=== PATIENT | female | born 1985 | race African-American/Black ===

== ENCOUNTER 2020-04-13 13:44 | Emergency (ER) | payer MEDICAID ==
[~2020-04-13] VITALS: Ht 157.5 cm; Wt 73.0 kg
[2020-04-13 13:47] VITALS: BP 158/93
== END 2020-04-13 17:01 | disposition left against medical advice (07) ==
LOC: ER 13:44
DX: Z53.21 Procedure and treatment not carried out due to patient leaving prior to being seen by health care provider (principal)

== ENCOUNTER 2020-09-15 11:41 | Emergency (ER) | payer MEDICAID ==
[~2020-09-15] VITALS: Ht 162.6 cm; Wt 78.0 kg
[2020-09-15] MEDS ORDERED: IBUPROFEN 600MG TABLET PO ONE (12:00)
[2020-09-15] MEDS ORDERED: CARI250T PO (12:04)
[2020-09-15] MEDS ORDERED: IBUP-2029 PO (12:04)
[2020-09-15 12:13] VITALS: BP 147/105
== END 2020-09-15 12:14 | disposition home or self-care (01) ==
LOC: ER 11:41
DX: M54.31 Sciatica, right side (principal)
CPT/HCPCS: 99283

== ENCOUNTER 2020-12-04 20:05 | Emergency (ER) | payer MEDICAID, OTHER ==
[~2020-12-04] VITALS: Ht 157.5 cm; Wt 80.0 kg
[~2020-12-04 20:05] MED LIST: CARI250T PO; IBUP-2029 PO
[2020-12-04 20:40] VITALS: BP 161/111
[2020-12-04] MEDS ORDERED: KETOROLAC 60MG/2ML VIAL IM ONE (20:45)
[2020-12-04 21:01] LABS: BASOPHILS % 1.2 % (0.0-2.0); EOSINOPHILS % 2.1 % (0.0-5.0); HEMATOCRIT. 38.8 % (36.0-48.0); HEMOGLOBIN. 13.5 g/dL (12.0-16.0); LYMPHOCYTES % 47.3 % (20.0-50.0); MEAN CORPUSCULAR HEMOGLOBIN 33.8 pg (28.0-32.0); MEAN CORPUSCULAR VOLUME 97.3 fL (81.0-99.0); MEAN PLATELET VOLUME 8.5 fl (7.4-10.4); MONOCYTES % 10.5 % (2.0-8.0); NEUTROPHILS % 38.9 % (40.0-76.0); PLATELET 254 x1000/uL (130-400); RED BLOOD CELL COUNT 3.99 mill/uL (4.2-5.4); RED CELL DISTRIBUTION WIDTH 12.7 % (11.6-14.6)
[2020-12-04 21:08] LABS: CHLORIDE 105 mEq/L (98-107)
[2020-12-04] MEDS ORDERED: PANT40TA51 PO (22:30)
== END 2020-12-04 22:55 | disposition home or self-care (01) ==
LOC: ER 20:05
DX: R07.89 Other chest pain (principal); F12.10 Cannabis abuse, uncomplicated
CPT/HCPCS: 36415; 71045; 80053; 84484; 85025; 85379; 93005; 96372; 99285; J1885

== ENCOUNTER 2021-06-23 10:32 | Emergency (ER) | payer MEDICAID, OTHER ==
[~2021-06-23] VITALS: Ht 165.1 cm; Wt 75.0 kg
[~2021-06-23 10:32] MED LIST changes: +PANT40TA51 PO
[2021-06-23] MEDS ORDERED: HYDROCODONE/ACETAMINOPHEN 5/325MG TABLET PO ONE (11:00)
[2021-06-23 11:07] VITALS: BP 158/96
[2021-06-23] MEDS ORDERED: NAPR-681 MT (12:16)
== END 2021-06-23 13:06 | disposition home or self-care (01) ==
LOC: ER 10:32
DX: M25.561 Pain in right knee (principal); F12.10 Cannabis abuse, uncomplicated; W22.8XXA Striking against or struck by other objects, initial encounter; Y93.89 Activity, other specified; Y92.810 Car as the place of occurrence of the external cause
CPT/HCPCS: 73562; 81025; 99283; L1830; Z7610

== ENCOUNTER 2022-09-14 14:47 | Emergency (ER) | payer MEDICAID ==
[~2022-09-14] VITALS: Ht 154.9 cm; Wt 77.0 kg
[~2022-09-14 14:47] MED LIST changes: +NAPR-681 MT
[2022-09-14 14:53] VITALS: BP 155/99
[2022-09-14] MEDS ORDERED: TETANUS, DIPHTHERIA, PERTUSSIS VAC/PF 0.5ML (>10YR OLD) IM ONE (18:15)
[2022-09-14] MEDS ORDERED: LIDOCAINE HCL 1% 20ML VIAL (Pyxis) INJ INFIL ONE (18:15)
== END 2022-09-14 19:10 | disposition home or self-care (01) ==
LOC: ER 14:47
DX: S61.211A Laceration without foreign body of left index finger without damage to nail, initial encounter (principal); Z87.828 Personal history of other (healed) physical injury and trauma; Z98.890 Other specified postprocedural states; W26.0XXA Contact with knife, initial encounter; Y93.89 Activity, other specified; Y92.018 Other place in single-family (private) house as the place of occurrence of the external cause; F12.10 Cannabis abuse, uncomplicated
CPT/HCPCS: 12001; 90471; 90715; 99283; J3490